=== PATIENT | female | born 1935 | race Caucasian/White ===

== ENCOUNTER 2018-11-09 17:41 | Observation (INO) | payer MEDICARE, SELFPAY ==
[2018-11-09 18:04] VITALS: BMI 24.0
[2018-11-09 18:05] VITALS: BP 115/91; PULSE 56; RESP 20; TEMP 36.8; O2SAT 100
--- NOTE | 2018-11-09 18:25 | PCM.HP.STD ---
Problem List (1) Hypokalemia Status: Acute (2) Mild lactic acidosis Status: Acute (3) Syncope Status: Acute (4) Osteoporosis Status: Chronic (5) Asthma Status: Chronic (6) Hyperlipidemia Status: Chronic (7) Hypertension Status: Chronic (8) GERD (gastroesophageal reflux disease) Status: Chronic History of Present Illness Date of Admission: 11/09/18 Chief Complaint: Syncope. The patient is a 83 year old M with past medical history as mentioned above admitted directly from outside facility for syncope, mild lactic acidosis and hypokalemia. The patient is poor informant and she is forgetful but she was able to provide some information. She states that she woke up here this morning around 3 AM, needed to go to the bathroom, was nauseated and she threw up once, then started to get dizzy and lightheaded and she . Since that time, she could not remember what happened after that. They state that her daughter came in later but she does not know how long after she passed out and her daughter found him on the floor of the bathroom. At this time, she complains only of headache at the back of her head. She mentioned that she ate fish at the restaurant for dinner last night. She is deaf that she was dizzy and lightheaded before she passed out but she denied chest pain, shortness of breath, palpitation. She denied abdominal pain, constipation or diarrhea. She denies urinary symptoms. She mentioned that in the near past, she was seen by a medical technologist prn for chest pain and she was informed that she is fine. She does not remember who was is that medical technologist prn and she does not remember when was that. Her routine blood work at the other facility revealed potassium 3.1, otherwise normal. LFT and lipase were unremarkable. Troponin was 0.01. BNP was 65. Her lactic acid was 2.4. Her EKG revealed normal sinus rhythm, normal VT interval, normal QRS, normal QTC and no evidence of acute ischemic changes or cardiac arrhythmias. She had a CT scan brain at the other facility that revealed no acute infarct or hemorrhage. CT scan cervical spine showed no acute fractures or dislocations. Chest x-ray showed no acute infiltrate or consolidation. Scan abdomen and pelvis that revealed hiatal hernia, diverticulosis and without evidence of acute intra-abdominal pathology. She is being admitted for syncope, probable food poisoning, mild lactic acidosis and hypokalemia. Past Medical History Past Medical History (Chronic Problems): Chronic Problems Osteoporosis (Chronic) Asthma (Chronic) Hyperlipidemia (Chronic) Hypertension (Chronic) GERD (gastroesophageal reflux disease) (Chronic) Home Medications: Ambulatory Orders Medication Instructions Recorded Albuterol Aerosols [Ventolin 2.5 mg INHALATION Q4H PRN PRN 11/09/18 Aerosols] Albuterol Aerosols [Ventolin 2.5 mg INHALATION Q6HWA.RT 11/09/18 Aerosols] Ascorbic Acid [Vitamin C] 500 mg PO DAILY 11/09/18 Baclofen [Lioresal] 10 mg PO BID PRN 11/09/18 Budesonide/Formoterol 160/4.5 2 puff INHALATION BID 11/09/18 [Symbicort 160/4.5 Mcg Inhaler (SP)] Montelukast [Singulair] 10 mg PO QHS 11/09/18 Multivit with Calcium,Iron,Min 1 each PO DAILY 11/09/18 [One Daily Women's] Omeprazole 40 mg PO BID 11/09/18 Potassium Chloride 10 meq PO BID 11/09/18 Simvastatin [Zocor] 20 mg PO QHS 11/09/18 traMADol [Ultram (G)] 50 mg PO Q4H PRN PRN 11/09/18 Surgical History: cholecystectomy, - - Neck surgery. Psychiatric History: No pertinent psych hx Lives: With Family Smoking Status: Never smoker Alcohol: None Drugs: None - *Family History Maternal History Items: No pertinent history Paternal History Items: No pertinent history Review of Systems Constitutional: Denies: Anorexia, Chills, Fever, Weakness Eyes: Denies: Blurred vision, Double vision, Drainage, Redness HEENT: Reports: Head Aches. Denies: Difficulty Hearing, Ear Pain, Eye Pain, Nasal bleeding, Nasal Congestion, Sore Throat Cardiovascular: Reports: Light Headedness, Syncope. Denies: Chest Pain, Chest Pressure, Edema, Heaviness, Palpitations, Paroxysmal Noc. Dyspnea Respiratory: Denies: Cough, Pleuritic Pain, Shortness of Breath, Sputum production, Wheezing Gastrointestinal: Reports: Nausea, Vomiting. Denies: Abdominal Pain, Constipation, Diarrhea Genitourinary: Denies: Dysuria, Frequency, Hematuria Musculoskeletal: Denies: Arm Pain, Back Pain, Foot Pain Skin: Denies: Dryness, Rash Neurological: Reports: Headaches. Denies: Balance problems, Change in Speech, Slurred speech, Confusion, Focal weakness, Incoordination, Numbness Psychiatric: Denies: Anxiety, Depression Endocrine: Denies: Change in Body Habitus, Polydipsia VTE Information - Inpt Only VTE Present on Admission: No VTE Mechan Device Prophylaxis: None VTE Pharm Prophylaxis ordered?: Yes Patient Problems: Active and Suspected Problems Hypokalemia (Acute) Mild lactic acidosis (Acute) Syncope (Acute) - Physical Exam General: Alert, Oriented x3, Cooperative, No apparent distress HEENT: PERRLA, EOMI, Normocephalic Oral: Moist Mucosa, No Gingival or Mucosal Lesions/ Ulcerations Neck: Supple, No JVD, Negative Carotid Bruits, Trachea Midline, Thyroid Normal Size and Texture Lungs: Clear to auscultation, Normal air movement, No rhonchi, No wheeze, No rales Cardiovascular: Regular rate, Regular Rhythm, Normal S1, Normal S2, No murmurs, PMI Normal Abdomen: Bowel Sounds Present, Soft, Non Tender, Non-Distended, No Hepato-splenomegaly Extremities: No clubbing, No cyanosis, No edema Skin: No rashes, No breakdown Lymphatic: No Cervical, Supraclavicular, or Inguinal Adenopathy Neurological: Cranial nerves II-XII grossly intact, Motor Exam 5/5 strength throughout Psych/Mental Status: Normal Affect, Appropriate, Alert and oriented to time, place, person, mood and affect Vital Signs Temp Pulse Resp BP Pulse Ox 98.2 F 56 L 20 H 115/91 H 100 11/09/18 18:05 11/09/18 18:05 11/09/18 18:05 11/09/18 18:05 11/09/18 18:05 Oxygen Delivery Method Room Air Weight: 123 lb Body Mass Index (BMI) 24.0 Laboratory data that was done at the other facility: CBC: WBC 7.1, hemoglobin 12.7, platelet count is 332,000. BMP: BUN 7, creatinine 0.7, sodium 135, potassium 3.1, glucose 150. LFT was normal. Lipase was 6. Lactic acid was 2.4. Troponin is less than 0.01. BNP 65. Urinalysis: Negative for nitrite, trace leukocyte esterase, there was you to 5 to be BCs and 1+ bacteria. ABG: pH of 7., PCO2 20, PO2 65.55 Imaging studies: Reviewed as above. Assessment/Plan All Active Problems Hypokalemia (Acute) Mild lactic acidosis (Acute) Syncope (Acute) This is an 83 years old female patient in outside facility for syncope, nausea and vomiting and she was found to have mild lactic acidosis and hypokalemia and she is being admitted for evaluation and treatment. #1 syncope: Unclear etiology. Patient denies any prodromal symptoms except dizziness and lightheadedness. Could be due to the nausea and vomiting which is presumably due to food poisoning. Her EKG revealed normal sinus rhythm without evidence of acute ischemic change of cardiac arrhythmias. CT scan brain showed no acute findings. Her vital signs are stable. Her routine blood work is medical for mild hypokalemia, otherwise normal. Troponin was negative. Plan: Admit to [facility] floor, cardiac monitoring, serial cardiac enzymes because patient mentioned that she saw a medical technologist prn as outpatient for chest pain and she was informed that she was fine and she does not know when was that, repeat EKG tomorrow morning, IV fluids, orthostatic vitals tomorrow morning, repeat CBC and CMP tomorrow morning, 2D echocardiogram, bilateral carotid Doppler, PT OT evaluation and treatment. I am ordering 2D echocardiogram and carotid Doppler because patient is unreliable. #2 mild lactic acidosis: Without evidence or source of infection. Urine analysis that was done at the outside facility reviewed, no findings consistent with acute cystitis. Chest x-ray shows no acute infiltrate or consolidation. Patient is afebrile, no leukocytosis. This is could be due to the syncopal episode that she had which probably vasovagal. Plan: IV fluids, repeat lactic acid tonight at 8 PM, monitor for clinical signs of infection. #3 probable food poisoning/gastroenteritis: Patient ate fish at a restaurant yesterday, had nausea and vomiting before she passed out. She denied abdominal pain, constipation or diarrhea. She is afebrile. Plan to monitor. #4 hypokalemia: Likely due to nausea and vomiting. Plan for replacing potassium with potassium chloride added to the IV fluids, will check serum magnesium, repeat CMP tomorrow morning. #5 asthma: Clinically stable, pulse ox is normal on room air, continue Symbicort, start albuterol as needed. #6 hypertension: Blood pressure stable, she is not on any antihypertensive medication at this time. #7 hyperlipidemia: Continue statins. #8 GERD: Continue PPI. #9 DVT prophylaxis: Subcu Lovenox. This note was generated with [employer] dictation software. It may contain incorrect words, spelling, and punctuation that were not noted in checking the note before signing. Code Visit Inpatient E&M: 18969 Init Hosp L3
--- NOTE | 2018-11-09 18:30 | HP.PCM_ITS ---
Problem List (1) Hypokalemia Status: Acute (2) Mild lactic acidosis Status: Acute (3) Syncope Status: Acute (4) Osteoporosis Status: Chronic (5) Asthma Status: Chronic (6) Hyperlipidemia Status: Chronic (7) Hypertension Status: Chronic (8) GERD (gastroesophageal reflux disease) Status: Chronic History of Present Illness Date of Admission: 11/09/18 Chief Complaint: Syncope. The patient is a 83 year old M with past medical history as mentioned above admitted directly from outside facility for syncope, mild lactic acidosis and hypokalemia. The patient is poor informant and she is forgetful but she was able to provide some information. She states that she woke up here this morning around 3 AM, needed to go to the bathroom, was nauseated and she threw up once, then started to get dizzy and lightheaded and she . Since that time, she could not remember what happened after that. They state that her daughter came in later but she does not know how long after she passed out and her daughter found him on the floor of the bathroom. At this time, she complains only of headache at the back of her head. She mentioned that she ate fish at the restaurant for dinner last night. She is deaf that she was dizzy and lightheaded before she passed out but she denied chest pain, shortness of breath, palpitation. She denied abdominal pain, constipation or diarrhea. She denies urinary symptoms. She mentioned that in the near past, she was seen by a dye beck reel operator for chest pain and she was informed that she is fine. She does not remember who was is that dye beck reel operator and she does not remember when was that. Her routine blood work at the other facility revealed potassium 3.1, otherwise normal. LFT and lipase were unremarkable. Troponin was 0.01. BNP was 65. Her lactic acid was 2.4. Her EKG revealed normal sinus rhythm, normal [place] interval, normal QRS, normal QTC and no evidence of acute ischemic changes or cardiac arrhythmias. She had a CT scan brain at the other facility that revealed no acute infarct or hemorrhage. CT scan cervical spine showed no acute fractures or dislocations. Chest x-ray showed no acute infiltrate or consolidation. Scan abdomen and pelvis that revealed hiatal hernia, diverticulosis and without evidence of acute intra-abdominal pathology. She is being admitted for syncope, probable food poisoning, mild lactic acidosis and hypokalemia. Past Medical History Past Medical History (Chronic Problems): Chronic Problems Osteoporosis (Chronic) Asthma (Chronic) Hyperlipidemia (Chronic) Hypertension (Chronic) GERD (gastroesophageal reflux disease) (Chronic) Home Medications: Ambulatory Orders Medication Instructions Recorded Albuterol Aerosols [Ventolin 2.5 mg INHALATION Q4H PRN PRN 11/09/18 Aerosols] Albuterol Aerosols [Ventolin 2.5 mg INHALATION Q6HWA.RT 11/09/18 Aerosols] Ascorbic Acid [Vitamin C] 500 mg PO DAILY 11/09/18 Baclofen [Lioresal] 10 mg PO BID PRN 11/09/18 Budesonide/Formoterol 160/4.5 2 puff INHALATION BID 11/09/18 [Symbicort 160/4.5 Mcg Inhaler (SP)] Montelukast [Singulair] 10 mg PO QHS 11/09/18 Multivit with Calcium,Iron,Min 1 each PO DAILY 11/09/18 [One Daily Women's] Omeprazole 40 mg PO BID 11/09/18 Potassium Chloride 10 meq PO BID 11/09/18 Simvastatin [Zocor] 20 mg PO QHS 11/09/18 traMADol [Ultram (G)] 50 mg PO Q4H PRN PRN 11/09/18 Surgical History: cholecystectomy, - - Neck surgery. Psychiatric History: No pertinent psych hx Lives: With Family Smoking Status: Never smoker Alcohol: None Drugs: None - *Family History Maternal History Items: No pertinent history Paternal History Items: No pertinent history Review of Systems Constitutional: Denies: Anorexia, Chills, Fever, Weakness Eyes: Denies: Blurred vision, Double vision, Drainage, Redness HEENT: Reports: Head Aches. Denies: Difficulty Hearing, Ear Pain, Eye Pain, Nasal bleeding, Nasal Congestion, Sore Throat Cardiovascular: Reports: Light Headedness, Syncope. Denies: Chest Pain, Chest Pressure, Edema, Heaviness, Palpitations, Paroxysmal Noc. Dyspnea Respiratory: Denies: Cough, Pleuritic Pain, Shortness of Breath, Sputum production, Wheezing Gastrointestinal: Reports: Nausea, Vomiting. Denies: Abdominal Pain, Constipation, Diarrhea Genitourinary: Denies: Dysuria, Frequency, Hematuria Musculoskeletal: Denies: Arm Pain, Back Pain, Foot Pain Skin: Denies: Dryness, Rash Neurological: Reports: Headaches. Denies: Balance problems, Change in Speech, Slurred speech, Confusion, Focal weakness, Incoordination, Numbness Psychiatric: Denies: Anxiety, Depression Endocrine: Denies: Change in Body Habitus, Polydipsia VTE Information - Inpt Only VTE Present on Admission: No VTE Mechan Device Prophylaxis: None VTE Pharm Prophylaxis ordered?: Yes Patient Problems: Active and Suspected Problems Hypokalemia (Acute) Mild lactic acidosis (Acute) Syncope (Acute) - Physical Exam General: Alert, Oriented x3, Cooperative, No apparent distress HEENT: PERRLA, EOMI, Normocephalic Oral: Moist Mucosa, No Gingival or Mucosal Lesions/ Ulcerations Neck: Supple, No JVD, Negative Carotid Bruits, Trachea Midline, Thyroid Normal Size and Texture Lungs: Clear to auscultation, Normal air movement, No rhonchi, No wheeze, No rales Cardiovascular: Regular rate, Regular Rhythm, Normal S1, Normal S2, No murmurs, PMI Normal Abdomen: Bowel Sounds Present, Soft, Non Tender, Non-Distended, No Hepato- splenomegaly Extremities: No clubbing, No cyanosis, No edema Skin: No rashes, No breakdown Lymphatic: No Cervical, Supraclavicular, or Inguinal Adenopathy Neurological: Cranial nerves II-XII grossly intact, Motor Exam 5/5 strength throughout Psych/Mental Status: Normal Affect, Appropriate, Alert and oriented to time, place, person, mood and affect Vital Signs Temp Pulse Resp BP Pulse Ox 98.2 F 56 L 20 H 115/91 H 100 11/09/18 18:05 11/09/18 18:05 11/09/18 18:05 11/09/18 18:05 11/09/18 18:05 Oxygen Delivery Method Room Air Weight: 123 lb Body Mass Index (BMI) 24.0 Laboratory data that was done at the other facility: CBC: WBC 7.1, hemoglobin 12.7, platelet count is 332,000. BMP: BUN 7, creatinine 0.7, sodium 135, potassium 3.1, glucose 150. LFT was normal. Lipase was 6. Lactic acid was 2.4. Troponin is less than 0.01. BNP 65. Urinalysis: Negative for nitrite, trace leukocyte esterase, there was you to 5 to be BCs and 1+ bacteria. ABG: pH of 7., PCO2 20, PO2 65.55 Imaging studies: Reviewed as above. Assessment/Plan All Active Problems Hypokalemia (Acute) Mild lactic acidosis (Acute) Syncope (Acute) This is an 83 years old female patient in outside facility for syncope, nausea and vomiting and she was found to have mild lactic acidosis and hypokalemia and she is being admitted for evaluation and treatment. #1 syncope: Unclear etiology. Patient denies any prodromal symptoms except diz ziness and lightheadedness. Could be due to the nausea and vomiting which is presumably due to food poisoning. Her EKG revealed normal sinus rhythm without evidence of acute ischemic change of cardiac arrhythmias. CT scan brain showed no acute findings. Her vital signs are stable. Her routine blood work is medical for mild hypokalemia, otherwise normal. Troponin was negative. [facility], cardiac monitoring, serial cardiac enzymes because patient mentioned that she saw a dye beck reel operator as outpatient for chest pain and she was informed that she was fine and she does not know when was that, repeat EKG tomorrow morning, IV fluids, orthostatic vitals tomorrow morning, repeat CBC and CMP tomorrow morning, 2D echocardiogram, bilateral carotid Doppler, PT OT evaluation and treatment. I am ordering 2D echocardiogram and carotid Doppler because patient is unreliable. #2 mild lactic acidosis: Without evidence or source of infection. Urine analysis that was done at the outside facility reviewed, no findings consistent with acute cystitis. Chest x-ray shows no acute infiltrate or consolidation. Patient is afebrile, no leukocytosis. This is could be due to the syncopal episode that she had which probably vasovagal. Plan: IV fluids, repeat lactic acid tonight at 8 PM, monitor for clinical signs of infection. #3 probable food poisoning/gastroenteritis: Patient ate fish at a restaurant yesterday, had nausea and vomiting before she passed out. She denied abdominal pain, constipation or diarrhea. She is afebrile. Plan to monitor. #4 hypokalemia: Likely due to nausea and vomiting. Plan for replacing potassium with potassium chloride added to the IV fluids, will check serum magnesium, repeat CMP tomorrow morning. #5 asthma: Clinically stable, pulse ox is normal on room air, continue Symbicort, start albuterol as needed. #6 hypertension: Blood pressure stable, she is not on any antihypertensive medication at this time. #7 hyperlipidemia: Continue statins. #8 GERD: Continue PPI. #9 DVT prophylaxis: Subcu Lovenox. This note was generated with [employer] dictation software. It may contain incorrect words, spelling, and punctuation that were not noted in checking the note before signing. Code Visit Inpatient E&M: 47458 Init Hosp L3
--- NOTE | 2018-11-09 18:34 | CDU_ITS ---
Reason For Study: SYNCOPE Rt. Velocities/BP Lt. Velocities/BP Prox CCA 174/13 cm/sec. Prox CCA 122/23 cm/sec. Mid CCA 121/23 cm/sec. Mid CCA 118/25 cm/sec. Dist CCA 88/23 cm/sec. Dist CCA 83/21 cm/sec. Prox ICA 109/27 cm/sec. Prox ICA 56/19 cm/sec. Mid ICA 85/21 cm/sec. Mid ICA 81/23 cm/sec. Dist ICA 81/23 cm/sec. Prox ECA 65/14 cm/sec. Rt. ICA/CCA = .6. Lt. Vert. 111/23 cm/sec. Prox ECA 90/21 cm/sec. Rt. Vert. 94/27 cm/sec. Right Extracranial There is intimal thickening but no significant atherosclerotic plaque noted in the right common carotid artery. The tortuous nature of the right common carotid artery may result in flow velocities overestimating the degree of stenosis. There is heterogeneous, irregular atherosclerotic plaque noted in the right internal carotid artery. The right internal carotid artery is very tortuous. There is heterogeneous, smooth atherosclerotic plaque noted in the right external carotid artery. Antegrade flow is noted in the right vertebral artery. Left Extracranial There is intimal thickening but no significant atherosclerotic plaque noted in the left common carotid artery. The left common carotid artery is tortuous. There is heterogeneous, irregular atherosclerotic plaque noted in the left internal carotid artery. The left internal carotid artery is not well visualized. The distal left internal carotid artery is not well visualized. There is heterogeneous, smooth atherosclerotic plaque noted in the left external carotid artery. Antegrade flow is noted in the left vertebral artery. Procedure Carotid Duplex [id number]. The study was technically difficult. The study was technically limited. Exam performed portable in patient room. Technically difficult due to pt back pain - unable to lay on back. Interpretation Summary No hemodynamically significant plague or stenosis bilateral extracranial internal carotids with <50% stenosis. <50% stenosis bilateral external carotids Patent and antegrade vertebrals bilaterally. Very tortuous bilateral common carotids. Diffulty in imaginag particularly left carotid system making the exam technically difficult hampered by patient back pain. Ordering Physician: Danuta Faust Referring Physician: CORI MEDINA Performed By: Ailyn Moya, ARCELIA, RVT
[2018-11-09 18:42] VITALS: BMI 24.0
[2018-11-09 20:00] VITALS: PULSE 69
[2018-11-09] MEDS: Atorvastatin Calcium 10 MG Tablet PO (21:53)
[2018-11-09] MEDS: Montelukast 10 MG Tablet PO (21:53)
[2018-11-09 22:06] VITALS: BP 135/78; PULSE 61; RESP 16; TEMP 36.7; O2SAT 97
[2018-11-09 22:40] LABS: Lactic Acid 1.6 mmol/L (0.4-2.0)
[2018-11-09 22:43] VITALS: PULSE 63
[2018-11-09] MEDS: traMADol 50 MG Tablet PO (22:50)
[2018-11-10] VITALS (12 sets, daily range): BP systolic 127–155; BP diastolic 61–80; PULSE 55–80; RESP 16–20; TEMP 36.4–36.9; O2SAT 94–97
[2018-11-10] MEDS: Ondansetron 4 MG/2 ML Vial IV (04:53)
[2018-11-10] MEDS: Acetaminophen 325 MG Tablet 650 MG PO ×2 (04:53→18:26)
--- NOTE | 2018-11-10 05:55 | EKG12_ITS ---
Test Reason : AM EKG Blood Pressure : / mmHG Vent. Rate : 056 BPM Atrial Rate : 056 BPM P-R Int : 198 ms QRS Dur : 072 ms QT Int : 452 ms P-R-T Axes : 076 -16 009 degrees QTc Int : 436 ms Sinus bradycardia Otherwise normal ECG No previous ECGs available Confirmed by MERCEDES SPEARS, LEDY ([id number]), assistant production editor TAMEKA WEBER ([id number]) on 11/14/2018 2:04:27 PM Referred By: SARA Confirmed By:LEDY LONG MD
[2018-11-10 06:05] LABS: Absolute Lymphocyte Count 1.13 X10^3/ul (0.83-4.51); Absolute Neutrophil Count 2.5 X10^3/uL (2.0-7.7); Basophil# 0.03 X10^3/uL; Basophil% 0.7 % (0-1); Eosinophil# 0.17 X10^3/uL; Eosinophils% 3.9 % (0-5); Hematocrit 31.8 % (40-54); Hemoglobin 10.8 g/dl (13.0-16.5); Lymphocyte # 1.13 X10^3/ul (4.0); Lymphocyte % 25.9 % (19-41); Mean Corpuscular Volume 85.5 fL (80-94); Mean Platelet Vol. 9.6 fl (6.2-12.0); Monocyte% 11.4 % (0-10); Neutrophil # 2.54 X10^3/uL (2.7-7.7); Neutrophil % 58.1 % (47-70); Platelet Count 253 K/mm3 (150-450); RBC Distribution Width CV 13.6 % (11.6-14.6); RBC Distribution Width SD 42.6 fl (35.1-43.9); Red Blood Count 3.72 M/mm3 (4.6-6.2); White Blood Count 4.4 K/mm3 (4.4-11.0)
[2018-11-10 06:12] LABS: POSITIVE COUNT NO; POSITIVE DIFFERENTIAL NO; POSITIVE MORPHOLOGY NO
[2018-11-10] MEDS: proCHLORPERazine 10 MG/2 ML Vial 5 MG IV (06:23)
[2018-11-10 06:31] LABS: ALB/GLOB Ratio 1.1 RATIO (0.9-2.4); AST(SGOT) 18 U/L (15-37); Alanine Aminotransfer ALT/SGPT 12 U/L (16-61); Albumin, Serum 3.1 g/dL (3.2-5.0); Alkaline Phosphatase 79 U/L (45-117); Anion Gap 9 (5-15); BUN 6 mg/dL (7-18); BUN/Creat Ratio 9.7 RATIO (10-20); Calcium,Total 8.2 mg/dL (8.5-10.1); Chloride 107 mmol/L (98-107); Creatinine, Serum 0.62 mg/dL (0.70-1.30); EST Glomerular Filtration Rate 133 mL/min (>60); Est Glom Filt Rate - Afr Amer 161 mL/min (>60); Estimated Creatinine Clearance 40.97 ml/min; Globulin 2.7 g/dL (2.2-4.2); Glucose 108 mg/dL (74-106); Potassium 3.6 mmol/L (3.5-5.1); Protein, Total 5.8 g/dL (6.4-8.2); Sodium Level 135 mmol/L (136-145)
[2018-11-10] MEDS: Albuterol 2.5 MG/3 ML VIAL.NEB. INHALATION ×3 (07:08→19:45)
[2018-11-10] MEDS: Budesonide Respules 0.5 MG/2 ML AMPUL.NEB. INHALATION ×2 (07:09→19:55)
--- NOTE | 2018-11-10 07:36 | PCM.PN.HOSP ---
Patient Problems: Active and Suspected Problems Hypokalemia (Acute) Mild lactic acidosis (Acute) Syncope (Acute) Subjective: Patient was seen and examined. Complains of a headache. Denies any fever or chills. Denied any diarrhea abdominal discomfort. Vitals/I&O's: Vital Signs Temp Pulse Resp BP Pulse Ox 97.5 F L 62 16 155/80 H 97 11/10/18 04:45 11/10/18 07:11 11/10/18 07:11 11/10/18 04:45 11/10/18 07:11 Oxygen Delivery Method Room Air Weight: 55.792 kg Body Mass Index (BMI) 24.0 Intake and Output for Last 24 Hours 11/08/18 11/09/18 11/10/18 23:59 23:59 23:59 Intake Total 1807 / 1807 Output Total 900 / 900 Balance 907 / 907 General: Alert, Oriented x3, Cooperative, No apparent distress HEENT: Atraumatic, PERRLA, EOMI, Normocephalic Oral: Moist Mucosa Neck: Supple Lungs: Clear to auscultation, Normal air movement Cardiovascular: Regular rate, Regular Rhythm, Normal S1, Normal S2, No murmurs Abdomen: Bowel Sounds Present, Soft, Non Tender, Non-Distended, No Hepato-splenomegaly Extremities: No edema Skin: No rashes Musculoskeletal: No Tenderness to Palpation of Joints or Extremities Lymphatic: No Cervical, Supraclavicular, or Inguinal Adenopathy Neurological: Cranial nerves II-XII grossly intact, Neuro grossly intact Psych/Mental Status: Normal Affect, Appropriate Laboratory Results 11/09/18 18:55: Troponin I < 0.015 11/09/18 22:05: Lactic Acid 1.6 11/09/18 22:05: Troponin I < 0.015 11/10/18 00:45: Troponin I 0.017 11/10/18 05:52: WBC 4.4, RBC 3.72 L, Hgb 10.8 L, Hct 31.8 L, MCV 85.5, MCH 29.0, MCHC 34.0, RDW 13.6, RDW Differential 42.6, Plt Count 253, MPV 9.6, Immature Gran % (Auto) 0.000, Neut % (Auto) 58.1, Lymph % (Auto) 25.9, Fergus % (Auto) 11.4 H, Eos % (Auto) 3.9, Baso % (Auto) 0.7, Absolute Neuts (auto) 2.5, Absolute Lymphs (auto) 1.13, Total Counted Not Reportable 11/10/18 05:52: Sodium 135 L, Potassium 3.6, Chloride 107, Carbon Dioxide 19.0 L, Anion Gap 9, BUN 6 L, Creatinine 0.62 L, Estim Creat Clear Calc 40.97, Est GFR (MDRD) Af Amer 161, Est GFR (MDRD) Non-Af 133, BUN/Creatinine Ratio 9.7 L, Glucose 108 H, Calcium 8.2 L, Magnesium 2.0, Total Bilirubin 0.40, AST 18, ALT 12 L, Alkaline Phosphatase 79, Total Protein 5.8 L, Albumin 3.1 L, Globulin 2.7, Albumin/Globulin Ratio 1.1 Current Medications Acetaminophen (Tylenol) 650 mg PO Q6H PRN PRN PRN Reason: Mild Pain (1-3)/Temp > 100.7 F Last Admin: 11/10/18 04:53 Dose: 650 mg Albuterol Sulfate (Ventolin Aerosols) 2.5 mg INHALATION Q4H PRN PRN PRN Reason: Shortness of breath, wheezing Albuterol Sulfate (Ventolin Aerosols) 2.5 mg INHALATION Q6HWA.RT [facility] Last Admin: 11/10/18 07:08 Dose: 2.5 mg Atorvastatin Calcium (Lipitor) 10 mg PO QHS [facility] Last Admin: 11/09/18 21:53 Dose: 10 mg Baclofen (Lioresal) 10 mg PO BID PRN PRN Reason: SPASMS Budesonide (Pulmicort Aerosol) 0.5 mg INHALATION Q12H.RT [facility] Last Admin: 11/10/18 07:09 Dose: 0.5 mg Enoxaparin Sodium (Lovenox) 40 mg SC DAILY@1000 ROE Potassium Chloride/Sodium Chloride () 1,000 mls @ 100 mls/hr IV .Q10H [facility] Stop: 11/10/18 14:33 Last Admin: 11/10/18 05:04 Dose: 100 mls/hr Montelukast Sodium (Singulair) 10 mg PO QHS [facility] Last Admin: 11/09/18 21:53 Dose: 10 mg Ondansetron HCl (Zofran) 4 mg IV Q8H PRN PRN PRN Reason: NAUSEA/VOMITING Last Admin: 11/10/18 04:53 Dose: 4 mg Pantoprazole Sodium (Protonix) 40 mg PO DAILY ROE Sodium Chloride () 5 - 15 ml IV UD PRN PRN Reason: SALINE FLUSH Tramadol HCl (Ultram) 50 mg PO Q4H PRN PRN PRN Reason: PAIN Last Admin: 11/09/18 22:50 Dose: 50 mg Medical Necessity - Tobacco Use Smoking Status: Never smoker Assessment/Plan All Active Problems Hypokalemia (Acute) Mild lactic acidosis (Acute) Syncope (Acute) 83-year-old female with past medical history with hypertension, hyperlipidemia, GERD who was admitted as a transfer from an outside facility with syncope, unclear etiology, likely vasovagal. No acute events overnight. Work-up is essentially been negative. 1. Syncope, unclear etiology, negative orthostatic vitals, unremarkable blood work, carotid ultrasound and 2D echo is pending Telemetry shows normal sinus rhythm with PVCs, will follow-up on therapy recommendations. 2. Lactic acidosis, mild, no signs of sepsis 3. Probable gastroenteritis, resolved 4. Hypokalemia, resolved, repeat BMP in am 5. Hyperlipidemia, on statin 7. GERD, on PPI 8. DVT PPx- Lovenox SC 9. Disposition: Pending PT and OT recommendation Code Visit Inpatient E&M: 01741 Subs Hosp L2
[2018-11-10 08:44] LABS: Bacteria 0 SEEN /hpf (None Seen); Mucous, Urine 0 SEEN /hpf (<or=2+); White Blood Cells 0 SEEN /hpf (0-5)
[2018-11-10 08:51] LABS: Color, Urine Straw (Yellow); Glucose, Dipstick Normal (Normal); Ketone-Dipstick Negative (Negative); Leukocyte Esterase-Dipstick Negative /ul (Negative); Nitrite-Dipstick Negative (Negative); Occult Blood-Urine Negative /ul (Negative); Protein-Dipstick Negative (Negative); Urine Bilirubin Dipstick Negative (Negative); Urine Clarity Clear (Clear); Urine Urobilinogen Normal (Normal)
[2018-11-10 09:21] LABS: Red Blood Cells-Urine 0-5 SEEN /hpf (0-5); Squamous Epithelial Cells - UA 0-5 SEEN /hpf (5-10)
--- NOTE | 2018-11-10 10:10 | CASEMGMT ---
RN PHILIPPE Face to Face with patient for initial transition planning/care coordination assessment. RN CM introduced self and role at [facility]. Patient sitting in chair, alert and oriented. Patient willing to participate in assessment and is able to answer all questions appropriately. Care providers, pharmacy, and demographics verified. Patient wishes to discharge home with possible HHC if needed. Patient states she has no further needs or concerns at this time. CM to follow for discharge planning needs that may arise. PCP: [facility]: [facility]: [facility] Insurance: [facility] PPO Prescription Benefit: yes Living Will/HPOA: Yes, son Gustavo Serrano JR LNOK: son and daughter Living Arrangements: Patient lives with daughter in mobile with ramp to enter the home. Patient states she is independent at home. Transportation: daughter DME/HHC: Patient states she has shower chair, BSC, raised toilet, cane, grab bars, walker, rollator, wc, oxygen 3lpm at night through [employer], cpap, and nebulizer at home. Patient states she has had HHC in the past but does not recall company. CM will follow-up with PCP to inquire previous HHC company. If recommended patient is agreeable to HHC with previous company Disposition Plan: Patient to discharge home with family support and follow-up plans in place. Monitor for need for HHC at discharge. Crystal MORA, RN, CM
[2018-11-10] MEDS: Pantoprazole Sodium 40 MG Tablet PO (11:11)
[2018-11-10] MEDS: Enoxaparin 40 MG/0.4 ML Syringe SC (11:14)
[2018-11-10] MEDS: traMADol 50 MG Tablet PO (15:30)
[2018-11-10] MEDS: Montelukast 10 MG Tablet PO (20:34)
[2018-11-10] MEDS: Atorvastatin Calcium 10 MG Tablet PO (20:34)
[2018-11-10] MEDS: 0.9% NaCl Peripheral Flush Adult/Peds IV (20:34)
[2018-11-11] VITALS (7 sets, daily range): BP systolic 116–135; BP diastolic 53–77; PULSE 60–102; RESP 16–18; TEMP 37–37.1; O2SAT 92–98
[2018-11-11 06:28] LABS: Absolute Lymphocyte Count 1.03 X10^3/ul (0.83-4.51); Absolute Neutrophil Count 2.3 X10^3/uL (2.0-7.7); Basophil# 0.02 X10^3/uL; Basophil% 0.5 % (0-1); Eosinophil# 0.12 X10^3/uL; Eosinophils% 3.2 % (0-5); Hematocrit 32.2 % (37-47); Lymphocyte # 1.03 X10^3/ul (4.0); Lymphocyte % 27.2 % (19-41); Mean Corp Hgb Conc 34.2 g/gl (32-36); Mean Corpuscular Hgb 28.7 pg (27.0-32.0); Mean Corpuscular Volume 84.1 fL (81-99); Mean Platelet Vol. 9.5 fl (6.2-12.0); Monocyte# 0.35 X10^3/uL; Monocyte% 9.2 % (0-10); Neutrophil # 2.27 X10^3/uL (2.7-7.7); Neutrophil % 59.9 % (47-70); Platelet Count 297 K/mm3 (150-450); RBC Distribution Width CV 13.4 % (11.6-14.6); RBC Distribution Width SD 41.1 fl (35.1-43.9); Red Blood Count 3.83 M/mm3 (4.2-5.4); White Blood Count 3.8 K/mm3 (4.4-11.0)
[2018-11-11 06:40] LABS: POSITIVE DIFFERENTIAL NO
[2018-11-11 06:41] LABS: POSITIVE COUNT NO; POSITIVE MORPHOLOGY NO
[2018-11-11 06:41] LABS: Anion Gap 6 (5-15); BUN 4 mg/dL (7-18); BUN/Creat Ratio 6.2 RATIO (10-20); Calcium,Total 8.7 mg/dL (8.5-10.1); Chloride 103 mmol/L (98-107); Creatinine, Serum 0.65 mg/dL (0.55-1.02); EST Glomerular Filtration Rate 93 mL/min (>60); Est Glom Filt Rate - Afr Amer 113 mL/min (>60); Estimated Creatinine Clearance 31.69 ml/min; Glucose 96 mg/dL (74-106); Potassium 3.5 mmol/L (3.5-5.1); Sodium Level 135 mmol/L (136-145)
[2018-11-11] MEDS: Budesonide Respules 0.5 MG/2 ML AMPUL.NEB. INHALATION (07:27)
[2018-11-11] MEDS: Albuterol 2.5 MG/3 ML VIAL.NEB. INHALATION ×2 (07:27→13:19)
[2018-11-11] MEDS: Ondansetron 4 MG/2 ML Vial IV (08:00)
[2018-11-11] MEDS: 0.9% NaCl Peripheral Flush Adult/Peds IV (08:00)
--- NOTE | 2018-11-11 09:28 | RAD_ITS ---
STUDY: X-RAY - ABDOMEN/PELVIS REASON FOR EXAM: Female, 83 years old. Nausea and back pain TECHNIQUE: Supine abdomen COMPARISON: None. FINDINGS: Excluded lung bases. There is a nonspecific, nonobstructive bowel gas pattern. There is no demonstrated free abdominal air. The visualized liver, spleen and kidneys are grossly normal in size and morphology. Normal soft tissue structures. Normal visualized osseous structures. RAD/Abdomen Single View IMPRESSION: Nonobstructive bowel gas pattern. Electronically Signed: Ian Anne MD at 17:50 EDT , Service support ,
--- NOTE | 2018-11-11 09:32 | DCINST_ITS ---
- Discharge Diagnoses Current Active Problems: Current Active and Chronic Problems Hypokalemia (Acute) Mild lactic acidosis (Acute) Syncope (Acute) Osteoporosis (Chronic) Asthma (Chronic) Hyperlipidemia (Chronic) Hypertension (Chronic) GERD (gastroesophageal reflux disease) (Chronic) Reason(s) for Visit for Discharge Instructions: Syncope You will use the following diet at home:: Regular Your food should be the consistency of: Regular Your liquids should be the consistency of: Regular/Thin Discharge Activity: Return to Normal Activity Additional Instructions: Continue to hydrate yourself. Follow-up with your primary care doctor and cardiology within 2 weeks. You should get a repeat blood work with your primary care doctor. Allergies/Adverse Reactions: Allergies amoxicillin Allergy (Verified 11/09/18 18:31) Other hallucinations, light headedness. cat dander Allergy (Verified 11/09/18 18:31) Other Medications to take at Discharge Albuterol Aerosols [Ventolin Aerosols] 2.5 mg INHALATION Q4H PRN PRN 11/09/18 Albuterol Aerosols [Ventolin Aerosols] 2.5 mg INHALATION Q6HWA.RT 11/09/18 Ascorbic Acid [Vitamin C] 500 mg PO DAILY 11/09/18 Baclofen [Lioresal] 10 mg PO BID PRN 11/09/18 Budesonide/Formoterol 160/4.5 [Symbicort 160/4.5 Mcg Inhaler (SP)] 2 puff INHALATION BID 11/09/18 Gabapentin [Neurontin] 300 mg PO QHS 11/09/18 Montelukast [Singulair] 10 mg PO QHS 11/09/18 Multivit with Calcium,Iron,Min [One Daily Women's] 1 each PO DAILY 11/09/18 Omeprazole 40 mg PO DAILY 11/09/18 Potassium Chloride 10 meq PO BID 11/09/18 Simvastatin [Zocor] 20 mg PO QHS 11/09/18 traMADol [Ultram] 50 mg PO Q4H PRN PRN 11/09/18 Primary Care Physician: Nory Albert MD [Primary Care Provider] - Please follow up with your Primary Care Physician in: within 1-2 weeks Test Results: Test results from this visit will be discussed in further detail at your follow- up appointment, if applicable. When: Follow-up with cardiology within 2 weeks Proposed Discharge Date: 11/11/18
--- NOTE | 2018-11-11 09:34 | PCM.DC.SUM ---
Discharge Date and Diagnosis - Problem List Patient Problems: Active and Suspected Problems Hypokalemia (Acute) Mild lactic acidosis (Acute) Syncope (Acute) Date of Admission: 11/09/18 Date of Discharge: 11/11/18 - Primary Discharge Diagnosis Active and Suspected Problems Hypokalemia (Acute) Mild lactic acidosis (Acute), not secondary to sepsis Syncope (Acute) - Secondary Discharge Diagnosis Chronic Problems Osteoporosis (Chronic) Asthma (Chronic) Hyperlipidemia (Chronic) Hypertension (Chronic) GERD (gastroesophageal reflux disease) (Chronic) Hospital Course and Treatment Imaging Results: 11/11/18 09:28 KUB [Abdomen Single View] [RAD] Routine None Operations: None Procedures: None Summary of Care Provided: 83-year-old female with past medical history with hypertension, hyperlipidemia, GERD who was admitted as a transfer from an outside facility with syncope, unclear etiology, likely vasovagal. No acute events overnight. Work-up has essentially been negative. Carotid ultrasound and 2D echo are negative. Telemetry shows normal sinus rhythm with PVCs, will follow-up on therapy recommendations. Her lactic acid was slightly elevated on admission in the outside hospital at 1.6, patient had no signs of sepsis. Her potassium which was reportedly low was normal here and had remained normal on repeat. Discussed with the patient's daughter on phone, patient has been having recurrent syncope, she has had a Holter monitor before with no etiology for the syncope. Advised her to follow-up with the patient's cardiology within 2 weeks. I encouraged patient to continue to hydrate herself. Daughter had questions with regards to patient's memory loss which was suggestive of dementia. Recommended that she follows up with her primary care doctor and possibly a neurology referral. Resources about Alzheimer's disease were given to patient by the geriatric social work professor. Patient Problems: Active and Suspected Problems Hypokalemia (Acute) Mild lactic acidosis (Acute) Syncope (Acute) Subjective: On the discharge, she felt slightly nauseous, she had 2 bowel movements yesterday. Denied any diarrhea. She is been able to have her breakfast with no complains. Objective: Physical exam: General: Alert, Oriented x3, Cooperative, No apparent distress HEENT: Atraumatic, PERRLA, EOMI, Normocephalic Oral: Moist Mucosa Neck: Supple Lungs: Clear to auscultation, Normal air movement Cardiovascular: Regular rate, Regular Rhythm, Normal S1, Normal S2, No murmurs Abdomen: Bowel Sounds Present, Soft, Non Tender, Non-Distended, No Hepato-splenomegaly Extremities: No edema Skin: No rashes Musculoskeletal: No Tenderness to Palpation of Joints or Extremities Lymphatic: No Cervical, Supraclavicular, or Inguinal Adenopathy Neurological: Cranial nerves II-XII grossly intact, Neuro grossly intact Psych/Mental Status: Normal Affect, Appropriate - Physical Exam Vital Signs Temp Pulse Resp BP Pulse Ox 98.6 F 79 16 135/77 H 92 11/11/18 08:04 11/11/18 08:04 11/11/18 08:04 11/11/18 08:04 11/11/18 08:04 Oxygen Delivery Method Room Air Weight: 55.792 kg Body Mass Index (BMI) 24.0 Orthostatic Vital Signs Start: 11/10/18 13:11 Freq: q24h Status: Active Protocol: Activity Type Activity Date Activity User E-Sign Co-Sign Detail Recorded Client Recorded Date Recorded By Document 11/10/18 15:15 MAB [id number] 11/10/18 15:24 MAB 11/10/18 15:15 Orthostatic Vitals Standing -Blood Pressure (90/60-120/80) 127/80 H -Extremity Use Right Arm -Pulse Rate (60-100) 80 Sitting -Blood Pressure (90/60-120/80) 132/68 H -Extremity Use Right Arm -Pulse Rate (60-100) 66 Lying -Blood Pressure (90/60-120/80) 133/74 H -Extremity Use Right Arm -Pulse Rate (60-100) 65 Intake and Output for Last 24 Hours 11/09/18 11/10/18 11/11/18 23:59 23:59 23:59 Intake Total 3563 / 3563 250 / 250 Output Total 900 / 900 Balance 2663 / 2663 250 / 250 Microbiology Past 72 Hours 11/10/18 08:10 Urine Culture - Preliminary Urine, Clean Catch Mixed Gram Positive Organisms Laboratory Tests Past 24 Hrs 11/11/18 11/11/18 06:05 06:15 WBC 3.8 L RBC 3.83 L Hgb 11.0 L Hct 32.2 L MCV 84.1 MCH 28.7 MCHC 34.2 RDW 13.4 RDW Differential 41.1 Plt Count 297 MPV 9.5 Immature Gran % (Auto) 0.000 Neut % (Auto) 59.9 Lymph % (Auto) 27.2 Clarke % (Auto) 9.2 Eos % (Auto) 3.2 Baso % (Auto) 0.5 Absolute Neuts (auto) 2.3 Absolute Lymphs (auto) 1.03 Total Counted Not Reportable Sodium 135 L Potassium 3.5 Chloride 103 Carbon Dioxide 26.0 Anion Gap 6 BUN 4 L Creatinine 0.65 Estim Creat Clear Calc 31.69 Est GFR (MDRD) Af Amer 113 Est GFR (MDRD) Non-Af 93 BUN/Creatinine Ratio 6.2 L Glucose 96 Calcium 8.7 Discharge Diet: Low fat/ Low Cholesterol, 2000 mg Sodium Diet Discharge Activity: Return to Normal Activity Home Medications: Medications to take at Discharge Albuterol Aerosols [Ventolin Aerosols] 2.5 mg INHALATION Q4H PRN PRN 11/09/18 Albuterol Aerosols [Ventolin Aerosols] 2.5 mg INHALATION Q6HWA.RT 11/09/18 Ascorbic Acid [Vitamin C] 500 mg PO DAILY 11/09/18 Baclofen [Lioresal] 10 mg PO BID PRN 11/09/18 Budesonide/Formoterol 160/4.5 [Symbicort 160/4.5 Mcg Inhaler (SP)] 2 puff INHALATION BID 11/09/18 Gabapentin [Neurontin] 300 mg PO QHS 11/09/18 Montelukast [Singulair] 10 mg PO QHS 11/09/18 Multivit with Calcium,Iron,Min [One Daily Women's] 1 each PO DAILY 11/09/18 Omeprazole 40 mg PO DAILY 11/09/18 Potassium Chloride 10 meq PO BID 11/09/18 Simvastatin [Zocor] 20 mg PO QHS 11/09/18 traMADol [Ultram] 50 mg PO Q4H PRN PRN 11/09/18 Primary Care Physician: Nory Albert MD [Primary Care Provider] - Please follow up with your Primary Care Physician in: within 1-2 weeks Please Follow Up With: Briseida June PA When: Follow-up with cardiology within 2 weeks Disposition: Home with Home Health Minutes spent on discharge:: 40 Patient Condition:: Stable Medical Necessity - Tobacco Use Smoking Status: Never smoker Tobacco Use: Non-smoker Meaningful Use Info Meaningful Use Diagnoses (Choose all that apply): None applicable Code Visit OBSV E&M: 41731 Observation care discharge
[2018-11-11] MEDS: Pantoprazole Sodium 40 MG Tablet PO (10:31)
[2018-11-11] MEDS: Enoxaparin 40 MG/0.4 ML Syringe SC (10:31)
--- NOTE | 2018-11-11 13:08 | CASEMGMT ---
Social Work Note Physician updated this worker that pt's daughter would like Alzheimer's/dementia resources. SW attempted to see pt. Pt currently off floor for x-ray. SW left resources for pt's daughters including Alzheimer's Association and Alzheimer's support group information in pt's room. Crystal Wood SODA ROOM OPERATOR, COMMUNICATIONS TOWER CLIMBER
[2018-11-11] MEDS: traMADol 50 MG Tablet PO (13:43)
== END 2018-11-11 14:25 | disposition home or self-care (01) ==
PROVIDERS: Admitting Provider Hospitalist; Family Provider Family Medicine; PCP Family Medicine; Visit Provider Internal Medicine
DX: E87.6 Hypokalemia (principal); R55 Syncope and collapse; E78.5 Hyperlipidemia, unspecified; J45.909 Unspecified asthma, uncomplicated; K21.9 Gastro-esophageal reflux disease without esophagitis; I10 Essential (primary) hypertension; E87.2 Acidosis; Z79.899 Other long term (current) drug therapy
CPT/HCPCS: 36415; 74018; 80048; 80053; 81001; 83605; 83735; 84484; 85025; 87086; 87088; 93005; 93306; 93880; 94640; 96361; 96372; 96374; 96375; 96376; 97116; 97161; 97165; 99218; A4216; G0378; J2405

== ENCOUNTER 2021-03-30 15:25 | Emergency (ER) | payer MEDICARE, SELFPAY ==
[2021-03-30 15:25] VITALS: BP 141/85; PULSE 62; RESP 20; TEMP 36.3; O2SAT 98; BMI 28.7
== END 2021-03-30 16:44 | disposition left against medical advice (07) ==
LOC: ED 16:43
PROVIDERS: PCP Family Medicine
DX: R69 Illness, unspecified (principal); Z53.21 Procedure and treatment not carried out due to patient leaving prior to being seen by health care provider

== ENCOUNTER 2022-01-10 20:20 | Observation (INO) | payer MEDICARE, SELFPAY ==
--- NOTE | 2022-01-10 19:13 | EKG12_ITS ---
Test Reason : AM EKG Blood Pressure : / mmHG Vent. Rate : 052 BPM Atrial Rate : 052 BPM P-R Int : 206 ms QRS Dur : 080 ms QT Int : 492 ms P-R-T Axes : 061 -16 -16 degrees QTc Int : 457 ms Sinus bradycardia Otherwise normal ECG Confirmed by ALVINO SPEARS, MARIANNE ([id number]), offline editor TAMEKA WEBER ([id number]) on 01/13/2022 8:26:34 AM Referred By: Confirmed By:MARIANNE DE OLIVEIRA MD
[2022-01-10 20:30] VITALS: BP 143/81; PULSE 61; RESP 24; TEMP 36.6; O2SAT 95
[2022-01-10 20:31] VITALS: BMI 28.0
[2022-01-10 20:35] VITALS: PULSE 59
--- NOTE | 2022-01-10 21:15 | HP.PCM.HOS_ITS ---
HPI - General General Date of Admission: 01/10/22 Date of Service: 01/10/22 Chief Complaint: Chest pain HPI Narrative The patient is an 86 y/o F w/ PMHx: Hx DVT, ZOILA, COPD w/ Chronic Hypoxic Respiratory Failure/Intermittent mild Asthma with allergic rhinitis, Anxiety and Depression, GERD w/ Hiatal hernia, Alzheimer's disease with mild cognitive impairment/dementia without behavioral disturbance history, Chronic back pain, Pulmonary HTN, HLD who presents to the [facility] as direct admission from OSH ED on 01/10/22 with onset of ~ 1 month of chest pain, intermittent, not associated with increased activity noted to be L sided, sharp in nature, rated 10/10 at its worst, reporting at least 15 minute episode of day of current presentation prompting evaluation at OSH ED. She currently remains chest pain free upon H transition and notes mild headache onset since NG paste application. Work-up included at OSH ED high-sensitivity troponin initial 8 with repeat delta also 8, chest x-ray with no acute cardiopulmonary findings SARS COVID PCR negative, CMP with sodium 132, chloride 96, BUN/creatinine 8/0.90, glucose 129 otherwise unremarkable with unremarkable hepatic profile, magnesium 2.3, EKG with sinus rhythm with no acute evidence of ischemia, patient ministered Nitropaste 1 inch, aspirin 325 mg x 1 with resolution of chest pain at that time. Patient per report had a stress test over 10 years prior which is unremarkable at that time. [facility] Medical History (Updated 01/10/22 @ 21:[address] Deborah Persaud MD) Alzheimer's dementia without behavioral disturbance Anxiety and depression Asthma Chronic back pain COPD (chronic obstructive pulmonary disease) Hiatal hernia with GERD History of DVT (deep vein thrombosis) Hyperlipidemia Hypertension ZOILA (obstructive sleep apnea) Home Medications albuterol sulfate 1 inhalation Q4H PRN PRN Wheezing 11/09/18 [History Last Taken Unknown] budesonide-formoterol HFA 160 mcg-4.5 mcg/actuation aerosol inhaler (Symbicort) 2 puff inhalation BID 11/09/18 [History Last Taken Unknown] gabapentin 300 mg capsule (Neurontin) 300 mg PO QHS pain 11/09/18 [History Last Taken Unknown] montelukast 10 mg tablet 10 mg PO QHS allergies 11/09/18 [History Last Taken Unknown] potassium chloride 10 mEq capsule,extended release 10 meq PO DAILY supplement 11/09/18 [History Last Taken Unknown] lisinopril 30 mg tablet 30 mg PO DAILY 01/10/22 [History Last Taken Unknown] omeprazole 40 mg capsule,delayed release 40 mg PO DAILY 01/10/22 [History Last Taken Unknown] Allergy/AdvReac Type Severity Reaction Status Date / Time amoxicillin Allergy Other Verified 11/15/18 12:54 cat dander Allergy Other Verified 11/15/18 12:54 Family History (Updated 01/10/22 @ 19:[address] Deborah Persaud MD) Mother CVA (cerebral vascular accident) Hypertension Heart disease Myocardial infarction Alzheimer disease GERD (gastroesophageal reflux disease) Multiple sclerosis Surgical History (Updated 01/10/22 @ 19:[address] Deborah Persaud MD) H/O neck surgery History of bilateral carpal tunnel release History of total right knee replacement S/P cholecystectomy S/P hysterectomy S/P right rotator cuff repair S/P wrist surgery Status post repair of paraesophageal diaphragmatic hernia Social History (Updated 01/10/22 @ 19:[address] Deborah Persaud MD) household members: other details: Lives with her daughter. 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 ROS ROS Narrative Admission Review of Systems: CONSTITUTIONAL: No weight loss, fever, chills, + weakness or fatigue. HEENT: Eyes: No visual loss, blurred vision, double vision or yellow sclerae. Ears, Nose, Throat: No hearing loss, sneezing, congestion, runny nose or sore throat. SKIN: No rash or itching, lesions, wounds. CARDIOVASCULAR: + chest pain, chest pressure or chest discomfort, No palpitations, edema, orthopnea, syncopal events. RESPIRATORY: No shortness of breath, cough or sputum, wheezing, hemoptysis. GASTROINTESTINAL: No anorexia, nausea, vomiting or diarrhea, abdominal pain, melena, BRBPR. GENITOURINARY: No dysuria, frequency, urgency or retention. NEUROLOGICAL: No headache, dizziness, syncope, paralysis, ataxia, numbness or tingling in the extremities, focal weakness, change in bowel or bladder control, seizure. MUSCULOSKELETAL: + muscle, back pain, joint pain or stiffness. HEMATOLOGIC: No anemia, bleeding or bruising. LYMPHATICS: No enlarged nodes. No history of splenectomy. PSYCHIATRIC: + history of depression or anxiety. ENDOCRINOLOGIC: No reports of sweating, cold or heat intolerance. No polyuria or polydipsia. ALLERGIES: + history of asthma, hives, eczema or rhinitis. Vital Signs Vital Signs Vital Signs: 01/10/22 20:28 01/10/22 20:35 01/10/22 20:30 Temperature 97.8 F Temperature Source Oral Pulse Rate 59 L 61 Pulse Strength Weak (1+) Respiratory Rate 24 H Respiratory Effort Respiratory Depth Respiratory Pattern Blood Pressure 143/81 H Blood Pressure Mean 101 Blood Pressure Source Monitor Blood Pressure Position Semi-Fowlers Blood Pressure Location Right Arm Pulse Ox 95 Oxygen Delivery Method Room Air 01/10/22 20:50 Temperature Temperature Source Pulse Rate Pulse Strength Respiratory Rate Respiratory Effort Short of Breath Respiratory Depth Normal Respiratory Pattern Normal Blood Pressure Blood Pressure Mean Blood Pressure Source Blood Pressure Position Blood Pressure Location Pulse Ox Oxygen Delivery Method Room Air Weight Weight: 143 lb 11.862 oz Body Mass Index (BMI) 28.0 Physical Exam Narrative Physical Examination: General: Awake, alert, oriented x 3 and cooperative, seated upright in PCU bed in no apparent distress, chest pain remains resolved. Skin: Normal color, normal turgor, no icterus, no cyanosis. HEENT: AT/NC, EOMI, PERRLA, MMM, no carotid bruits or JVD noted. Lungs: Diminished, greater bases, poor effort, no rales, ronchi or wheezing. Heart: Currently regular rate and rhythm; no gallop, rub audible. Abdomen: Soft, NTTP, ND, normal BS, no HSM. Extremities: No cyanosis, clubbing, or edema. Neurological: Patient awake, alert, oriented as noted cognitive function intact; pupils equally reactive to light and accommodation, cranial nerves II-XII grossly normal, moving all 4 extremities, no focal deficits, strength mildly to moderately global decreased Psychiatric: Affect appears mildly fatigued otherwise normal, no acute evidence of depressive or anxiety feelings. Assessment & Plan Assessment/Plan (1) Chest pain: PLAN: Plan The patient is an 86 y/o F w/ PMHx: Hx DVT, ZOILA, COPD w/ Chronic Hypoxic Respiratory Failure/Intermittent mild Asthma with allergic rhinitis, Anxiety and Depression, GERD w/ Hiatal hernia, Alzheimer's disease with mild cognitive impairment/dementia without behavioral disturbance history, Chronic back pain, Pulmonary HTN, HLD who presents to the [facility] as direct admission from OSH ED on 01/10/22 with onset of ~ 1 month of chest pain, intermittent, not associated with increased activity noted to be L sided, sharp in nature. #1. Chest Pain, lower suspicion for cardiac etiology: EKG in ED at outside facility with sinus rhythm and no acute evidence of ischemia, CXR w/ no acute cardiopulmonary finding, initial trop 8 with repeat delta 8. Will admit to PCU to be cautious given underlying history, place on a monitored bed to assure no acute myocardial infarction with serial cardiac enzymes and EKGs. If repeat serial enzymes and EKGs remain unremarkable will pursue a.m. cardiac stress testing on Tuesday. Magnesium level at outside facility normal. FLP in AM. ASA, NG, morphine. #2. Chronic COPD/Asthma with reported per outside records chronic hypoxic respiratory failure with allergic rhinitis: Will maintain on home oxygen supplementation, will hold patient home inhalers and transition in the interim to ATC duonebs, PRN albuterol, HOB, IS parameters, continue home montelukast regimen. #3. Hypertension: Continue home regimen including lisinopril with hold parameters as needed, PRN hydralazine. #4. Hyperlipidemia: Not on regimen, defer to outpatient. #5. Chronic back pain: Continue patient home gabapentin regimen. #6. Anxiety and depression: Not on any regimen, was noted to have been on prior, likely off secondary to age, defer to outpatient. #7. GERD with history hiatal hernia: Continue home omeprazole regimen. #8. Alzheimer's disease with mild cognitive impairment/dementia without be havioral disturbance history: Noted and records reviewed on [facility], maintain on fall precautions. #9. History DVT: Noted remote history of DVT, not anticoagulated. #10. ZOILA: CPAP nightly if amenable. #11. DVT prophylaxis: SCDs, Lovenox. #12. CODE status: HCPOA and living will are not in place. Discussed CODE status at length including difference between FULL code, DNR-CCA and DNR-CC status. Following discussions about the differences in these status, requested continued medical treatment but no aggressive measures, DNR-CCA, no intubation status. Advanced Care Planning Face to Face Time: 16 minutes. Charges/Coding Visit Charges OBSV E&M: 35814 Initial observation care L3 Procedures Hospitalists Procedures: 48296 Advncd Care Plan 30 Min
[2022-01-10] MEDS: 0.9% Normal Saline 1,000 ML 100 ML IV (21:39)
[2022-01-10 22:04] LABS: Troponin-I HS 9 pg/mL (3.0-54.0)
[2022-01-11] VITALS (7 sets, daily range): BP systolic 96–158; BP diastolic 65–77; PULSE 53–70; RESP 14–18; TEMP 36.6–36.9; O2SAT 96–99
[2022-01-11 00:27] LABS: Troponin-I HS 7 pg/mL (3.0-54.0)
[2022-01-11 03:53] LABS: Absolute Lymphocyte Count 1.56 X10^3/uL (0.83-4.51); Absolute Neutrophil Count 2.3 X10^3/uL (2.0-7.7); Basophil# 0.05 X10^3/uL; Basophil% 1.1 % (0-1); Eosinophil# 0.18 X10^3/uL; Eosinophils% 3.9 % (0-5); Hematocrit 36.3 % (37-47); Hemoglobin 12.1 g/dL (12.0-15.0); Lymphocyte # 1.56 X10^3/ul (0.83-4.51); Lymphocyte % 34.1 % (19-41); Mean Corp Hgb Conc 33.3 g/dL (32-36); Mean Corpuscular Hgb 27.8 pg (27.0-32.0); Mean Corpuscular Volume 83.4 fL (81-99); Mean Platelet Vol. 10.3 fl (6.2-12.0); Monocyte# 0.52 X10^3/uL; Monocyte% 11.4 % (0-10); NRBC Flagged by Analyzer 0 % (0-5); Neutrophil # 2.26 X10^3/uL (2.7-7.7); Neutrophil % 49.5 % (47-70); Platelet Count 282 K/mm3 (150-450); RBC Distribution Width CV 14.6 % (11.6-14.6); RBC Distribution Width SD 44.7 fl (35.1-43.9); Red Blood Count 4.35 M/mm3 (4.2-5.4); White Blood Count 4.6 K/mm3 (4.4-11.0)
[2022-01-11 04:08] LABS: Troponin-I HS 9 pg/mL (3.0-54.0)
[2022-01-11 04:40] LABS: ALB/GLOB Ratio 1.2 RATIO (0.9-2.4); AST(SGOT) 11 U/L (15-37); Alanine Aminotransfer ALT/SGPT 13 U/L (13-56); Albumin, Serum 3.2 g/dL (3.2-5.0); Alkaline Phosphatase 99 U/L (45-117); Anion Gap 7 (5-15); BUN 7 mg/dL (7-18); BUN/Creat Ratio 9.8 RATIO (10-20); Calcium,Total 8.6 mg/dL (8.5-10.1); Chloride 105 mmol/L (98-107); Cholesterol 174 mg/dL (200); Creatinine, Serum 0.72 mg/dL (0.55-1.02); EST Glomerular Filtration Rate 83 mL/min (>60); Est Glom Filt Rate - Afr Amer 100 mL/min (>60); Estimated Creatinine Clearance 30.08 ml/min; Globulin 2.7 g/dL (2.2-4.2); Glucose 110 mg/dL (74-106); High Density Lipoprotein 79 mg/dL; Potassium 4.2 mmol/L (3.5-5.1); Protein, Total 5.9 g/dL (6.4-8.2); Sodium Level 136 mmol/L (136-145); Triglycerides 64 mg/dL; Very Low Density Lipoprotein 13 mg/dL (5-40)
--- NOTE | 2022-01-11 05:00 | EKG12_ITS ---
Test Reason : CP ADMIT Blood Pressure : / mmHG Vent. Rate : 059 BPM Atrial Rate : 059 BPM P-R Int : 208 ms QRS Dur : 078 ms QT Int : 444 ms P-R-T Axes : 069 -19 -08 degrees QTc Int : 439 ms Sinus bradycardia Otherwise normal ECG Confirmed by ALVINO SPEARS, MARIANNE ([id number]), commissioning editor TAMEKA WEBER ([id number]) on 01/13/2022 8:27:44 AM Referred By: Confirmed By:MARIANNE DE OLIVEIRA MD
[2022-01-11] MEDS: Ipratropium/Albuterol Sulfate 3 ML AMPUL.NEB INHALATION ×2 (07:17→13:47)
--- NOTE | 2022-01-11 10:53 | STRESSREP ---
Stress Test Report Date: 01-11-2022 Procedure: Pharmacologic stress nuclear imaging study Indications: Chest pain; COPD; GERD; Alzheimer's disease Consent: Per the patient Procedure: The patient underwent pharmacologic (Regadenoson 0.4mg ) evaluation with a peak heart rate of 93 beats per minute (68%predicted maximal heart rate) and a peak blood pressure of 128/82 mmHg. The baseline ECG demonstrated normal sinus rhythm; nonspecific T wave abnormality. The peak pharmacologic ECG demonstrated no obvious ECG changes. There were no cardiac dysrhythmias pretest, during pharmacologic infusion, or recovery. There was no complaint of chest discomfort during pharmacologic infusion or recovery. The examination was discontinued secondary to completion of protocol. Impression: 1. Pharmacologic (Regadenoson) evaluation 2. Peak pharmacologic ECG with no obvious ECG changes. 3. There were no cardiac dysrhythmias pretest, during pharmacologic infusion, or recovery. 4. Nuclear images pending Myocardial perfusion imaging study: Technique: The patient was injected with 10.3 millicuries of technetium 99m Cardiolite and subsequently rest SPECT Cardiolite nuclear imaging was obtained in the horizontal long, vertical long, and short axis views. The patient underwent pharmacologic (Regadenoson) evaluation with a peak heart rate of 93 beats per minute (68% percent predicted maximal heart rate) and a peak blood pressure of 128/88 mmHg. The patient was injected with 35.8 millicuries of technetium 99m Cardiolite and subsequently stress SPECT Cardiolite nuclear imaging was obtained in the horizontal long, vertical long, and short axis views. A gated Cardiolite study at peak stress was obtained. Interpretation: Rest and stress SPECT Cardiolite nuclear imaging status post realignment, normalization, and attenuation correction demonstrate the appearance of body motion during image acquisition and otherwise the appearance of relative uniform tracer uptake and myocardial perfusion appearing within normal limits. There is end systolic thickening and brightening. The gated Cardiolite study demonstrates myocardial thickening and inward wall motion. The reported LVEF is 75%. Impression: 1. Relative uniform tracer uptake and myocardial perfusion appearing within normal limits. 2. The gated Cardiolite study reports an LVEF of 75%. This note was generated with [employer] software. It may contain incorrect words, spelling, and punctuation that were not noted in checking the note before signing.
--- NOTE | 2022-01-11 11:19 | DCINST_ITS ---
Discharge Instructions Diet Discharge Diet: No restrictions Activity Discharge Activity: Return to Normal Activity Follow Up Care Test Results: Test results from this visit will be discussed in further detail at your follow- up appointment, if applicable. Discharge Plan Admission Admit Date/Time: 01/10/22 20:20 Primary Reason for Your Visit: Acute Chest pain Attending Provider: Janny Mejia Primary Care Provider: Nory Albert Consulting Providers: Deborah Persaud Instructions Additional Instructions / Restrictions: Your stress test was negative which means it was unlikely that her chest pain was secondary to your heart You had reproducible plan on pressing your anterior chest wall. You can take an ibuprofen or Tylenol as needed for pain. Follow-up with your primary care doctor within 1 week of discharge. Discharge Orders/Prescriptions Prescriptions: Continued albuterol sulfate 2.5 MG/3 ML solution for nebulization 1 inhalation Q4H PRN PRN (Reason: Wheezing) potassium chloride 10 MEQ capsule, extended release 10 meq PO DAILY montelukast 10 MG tablet 10 mg PO QHS budesonide-formoterol [Symbicort] 1 INHALER inhaler 2 puff inhalation BID gabapentin [Neurontin] 300 MG capsule 300 mg PO QHS omeprazole 40 mg capsule,delayed release(DR/EC) 40 mg PO DAILY lisinopril 30 mg tablet 30 mg PO DAILY Referrals / Follow Up: Nory Albert MD [Primary Care Provider] - In 1 Week Disposition Disposition (needs filled in before D/C Order can be placed): Home, Self Care
[2022-01-11] MEDS: Aspirin E.C. 81 MG Tablet PO (12:11)
[2022-01-11] MEDS: Enoxaparin 40 MG/0.4 ML Syringe SC (12:11)
[2022-01-11] MEDS: Acetaminophen 325 MG Tablet 650 MG PO (12:47)
--- NOTE | 2022-01-11 12:55 | DS.PCM_ITS ---
Providers Date of Admission: 01/10/22 Date of Discharge: 01/11/22 Primary Care Physician: Dr. Nory Albert MD Reason For Visit: CHEST PAIN Diagnosis Discharge Diagnosis (1) Chest pain: Status: Acute Code(s): R07.9 - Chest pain, unspecified Medications at Discharge Home Medications albuterol sulfate 1 inhalation Q4H PRN PRN Wheezing 11/09/18 budesonide-formoterol HFA 160 mcg-4.5 mcg/actuation aerosol inhaler (Symbicort) 2 puff inhalation BID breathing 11/09/18 gabapentin 300 mg capsule (Neurontin) 300 mg PO QHS pain 11/09/18 montelukast 10 mg tablet 10 mg PO QHS allergies 11/09/18 potassium chloride 10 mEq capsule,extended release 10 meq PO DAILY supplement 11/09/18 lisinopril 30 mg tablet 30 mg PO DAILY blood pressure 01/10/22 omeprazole 40 mg capsule,delayed release 40 mg PO DAILY reflux 01/10/22 Hospital Course Operations None Procedures Nuclear stress test Summary of Care Provided Minutes Spent on Discharge: 40 Hospital Course: 86y/o female with PMHx of DVT, ZOILA, Anxiety/depression comes in with 1 month history of chest pain, intermittent, left sided. Admitting vitals are unremarkable. EKG with no acute ST-T changes. troponins were negative. Patient received Nitropaste for chest pain. Patient was admitted and monitored on telemetry. No acute events. She underwent nuclear stress test that was unremarkable. Lipid profile was unremarkable. On the day of discharge, patient was seen and examined. She complains of mild chest pain, left sided that was reproducible on palpating the precordium and left sternal border. She was recommended to take NSAIDS/Tylenol. She will follow-up with her primary care doctor within 1 to 2 weeks. Physical Exam Narrative Physical exam: General: Alert, Oriented x3, Cooperative, No apparent distress HEENT: Atraumatic Oral: Moist Mucosa Neck: Supple Lungs: Clear to auscultation, left sternal border and precordial area reproducible chest pain Cardiovascular: HS I+II, regular, no murmurs Abdomen: Bowel Sounds Present, Soft, Non Tender Extremities: No edema Skin: No rashes, No breakdown Neurological: Grossly intact Psych/Mental Status: Appropriate Weight / BMI Weight Weight: 65.2 kg Body Mass Index (BMI) 28.0 ABG / Lab / Microbiology Data Result Diagrams: 01/11/22 03:40 01/11/22 03:40 Laboratory: Laboratory Results - last 24 hr 01/10/22 21:30: Troponin I High Sens 9 01/10/22 23:28: Troponin I High Sens 7 01/11/22 03:40: WBC 4.6, RBC 4.35, Hgb 12.1, Hct 36.3 L, MCV 83.4, MCH 27.8, MCHC 33.3, RDW Std Deviation 44.7 H, RDW Coeff of Reji 14.6, Plt Count 282, MPV 10.3, Immature Gran % (Auto) 0.000, Neut % (Auto) 49.5, Lymph % (Auto) 34.1, [place] % (Auto) 11.4 H, Eos % (Auto) 3.9, Baso % (Auto) 1.1 H, Absolute Neuts (auto) 2.3, Absolute Lymphs (auto) 1.56, Nucleated RBC % 0 01/11/22 03:40: Sodium 136, Potassium 4.2, Chloride 105, Carbon Dioxide 24.0, Anion Gap 7, BUN 7, Creatinine 0.72, Estim Creat Clear Calc 30.08, Est GFR (MDRD) Af Amer 100, Est GFR (MDRD) Non-Af 83, BUN/Creatinine Ratio 9.8 L, Glucose 110 H, Calcium 8.6, Total Bilirubin 0.40, AST 11 L, ALT 13, Alkaline Phosphatase 99, Total Protein 5.9 L, Albumin 3.2, Globulin 2.7, Albumin/Globulin Ratio 1.2, Triglycerides 64, Cholesterol 174, LDL Cholesterol 82, VLDL Cholesterol 13, HDL Cholesterol 79 01/11/22 03:40: Troponin I High Sens 9 D/C Instructions Discharge Diet: No restrictions Meaningful Use Info Meaningful Use Diagnoses (Choose all that apply): None applicable Discharge Plan Admission Admit Date/Time: 01/10/22 20:20 Primary Reason for Your Visit: Acute Chest pain Attending Provider: Janny Mejia Primary Care Provider: Nory Albert Consulting Providers: Deborah Persaud Instructions Additional Instructions / Restrictions: Your stress test was negative which means it was unlikely that your chest pain was secondary to your heart You had reproducible painn on pressing your anterior chest wall. You can take an ibuprofen or Tylenol as needed for pain. Follow-up with your primary care doctor within 1 week of discharge. Discharge Orders/Prescriptions Prescriptions: Continued albuterol sulfate 2.5 MG/3 ML solution for nebulization 1 inhalation Q4H PRN PRN (Reason: Wheezing) potassium chloride 10 MEQ capsule, extended release 10 meq PO DAILY montelukast 10 MG tablet 10 mg PO QHS budesonide-formoterol [Symbicort] 1 INHALER inhaler 2 puff inhalation BID gabapentin [Neurontin] 300 MG capsule 300 mg PO QHS omeprazole 40 mg capsule,delayed release(DR/EC) 40 mg PO DAILY lisinopril 30 mg tablet 30 mg PO DAILY Referrals / Follow Up: Nory Albert MD [Primary Care Provider] - In 1 Week Disposition Disposition (needs filled in before D/C Order can be placed): Home, Self Care Charges/Coding Visit Charges OBSV E&M: 14704 Observation care discharge
== END 2022-01-11 11:17 | disposition home or self-care (01) ==
PROVIDERS: Admitting Provider Family Medicine; PCP Family Medicine; Visit Provider Internal Medicine
DX: R07.89 Other chest pain (principal); F02.80 Dementia in other diseases classified elsewhere, unspecified severity, without behavioral disturbance, psychotic disturbance, mood disturbance, and anxiety; G30.9 Alzheimer's disease, unspecified; J44.9 Chronic obstructive pulmonary disease, unspecified; I27.20 Pulmonary hypertension, unspecified; E78.5 Hyperlipidemia, unspecified; F41.9 Anxiety disorder, unspecified; F32.A Depression, unspecified; K21.9 Gastro-esophageal reflux disease without esophagitis; I10 Essential (primary) hypertension; G89.29 Other chronic pain; K44.9 Diaphragmatic hernia without obstruction or gangrene; G47.33 Obstructive sleep apnea (adult) (pediatric); Z86.718 Personal history of other venous thrombosis and embolism; R00.1 Bradycardia, unspecified; Z79.899 Other long term (current) drug therapy
CPT/HCPCS: 36415; 78452; 80053; 80061; 84484; 85025; 93005; 93017; 94640; 96360; 96361; 96372; 99218; A9500; J7030; A4216; G0378; G0379; J2785

== ENCOUNTER 2022-11-04 18:38 | Emergency (ER) | payer MEDICARE, SELFPAY ==
[2022-11-04 18:40] VITALS: BP 154/119; PULSE 78; RESP 22; TEMP 36.6; O2SAT 98; BMI 27.2
--- NOTE | 2022-11-04 19:21 | EKG12_ITS ---
Test Reason : DYSRHYTHMIA Blood Pressure : / mmHG Vent. Rate : 073 BPM Atrial Rate : 072 BPM P-R Int : 000 ms QRS Dur : 068 ms QT Int : 390 ms P-R-T Axes : 000 -22 -28 degrees QTc Int : 429 ms Atrial fibrillation Nonspecific ST and T wave abnormality Abnormal ECG Confirmed by KINA SPEARS, CELY ([id number]), editor & co founder TAMEKA WEBER ([id number]) on 11/08/2022 11:48:36 AM Referred By: TARAS Confirmed By:JOSHUA CASTANON MD
[2022-11-04 19:41] VITALS: O2SAT 99
[2022-11-04 19:45] LABS: Absolute Lymphocyte Count 1.29 X10^3/uL (0.83-4.51); Absolute Neutrophil Count 6.9 X10^3/uL (2.0-7.7); Basophil# 0.05 X10^3/uL; Basophil% 0.5 % (0-1); Eosinophil# 0.12 X10^3/uL; Eosinophils% 1.3 % (0-5); Hematocrit 45.7 % (37-47); Lymphocyte # 1.29 X10^3/ul (0.83-4.51); Mean Corp Hgb Conc 32.8 g/dL (32-36); Mean Corpuscular Hgb 27.1 pg (27.0-32.0); Mean Corpuscular Volume 82.6 fL (81-99); Mean Platelet Vol. 9.2 fl (6.2-12.0); Monocyte# 0.75 X10^3/uL; Monocyte% 8.2 % (0-10); NRBC Flagged by Analyzer 0 % (0-5); Neutrophil # 6.94 X10^3/uL (2.7-7.7); Neutrophil % 75.5 % (47-70); Platelet Count 468 K/mm3 (150-450); RBC Distribution Width CV 14.5 % (11.6-14.6); RBC Distribution Width SD 43.2 fl (35.1-43.9); Red Blood Count 5.53 M/mm3 (4.2-5.4); White Blood Count 9.2 K/mm3 (4.4-11.0)
--- NOTE | 2022-11-04 19:45 | RAD_ITS ---
INDICATION: chest pain EXAMINATION/TECHNIQUE: X-RAY - XR Chest 1 View COMPARISON: None. FINDINGS: LINES/DEVICES: None. LUNGS: No consolidation, edema or effusion. No pneumothorax. MEDIASTINUM AND CARDIOVASCULAR STRUCTURES: Cardiac silhouette not enlarged. Central airways and mediastinal contour are unremarkable. BONES AND SOFT TISSUES: Degenerative vertebral changes and slight scoliosis. RAD/Chest 1 View (Portable) IMPRESSION: No radiographic evidence of acute cardiopulmonary disease. Electronically Signed: Donnell Tenorio DO at 20:55 EDT ,
[2022-11-04 20:09] VITALS: BP 144/85; BP 157/108; BP 178/159
[2022-11-04 20:16] LABS: Anion Gap 8 (5-15); BUN 18 mg/dL (7-18); BUN/Creat Ratio 20.1 RATIO (10-20); Chloride 95 mmol/L (98-107); EST Glomerular Filtration Rate 64 mL/min (>60); Est Glom Filt Rate - Afr Amer 77 mL/min (>60); Estimated Creatinine Clearance 32.83 ml/min; Glucose 116 mg/dL (74-106); Sodium Level 128 mmol/L (136-145); Troponin-I HS 6 pg/mL (3.0-54.0)
--- NOTE | 2022-11-04 20:32 | EX.ED.DYSGE1 ---
HPI History of Present Illness Chief Complaint: Dizziness Narrative Narrative: 87-year-old female presenting with feeling dizzy and nauseous. She states that recently she was treated for COPD exacerbation and she is currently on doxycycline and prednisone for her cough. She states she was actually recovering over the last 3 days and feeling improved. She has not done much activity. She accompanied her daughter to the emergency room today because she was having allergic reaction and states that she became very nervous and had 1 episode of vomiting. Currently she states she feels better. She does not have a cough or shortness of breath. She has not had a fever recently. No nausea or vomiting since that episode. Patient states he has been eating and drinking well and making normal urine and stool. Denies chest pain. [facility] Medical History Alzheimer's dementia without behavioral disturbance Anxiety and depression Asthma Chronic back pain COPD (chronic obstructive pulmonary disease) Hiatal hernia with GERD History of DVT (deep vein thrombosis) Hyperlipidemia Hypertension Mild lactic acidosis ZOILA (obstructive sleep apnea) Home Medications albuterol sulfate 2.5 mg/3 mL (0.083 %) solution for nebulization 1 inhalation Q4H PRN PRN Wheezing 11/09/18 [History Last Taken Unknown] budesonide-formoterol HFA 160 mcg-4.5 mcg/actuation aerosol inhaler (Symbicort) 2 puff inhalation BID breathing 11/09/18 [History Last Taken Unknown] gabapentin 300 mg capsule (Neurontin) 300 mg PO QHS pain 11/09/18 [History Last Taken Unknown] montelukast 10 mg tablet 10 mg PO QHS allergies 11/09/18 [History Last Taken Unknown] potassium chloride 10 mEq capsule,extended release 10 meq PO DAILY supplement 11/09/18 [History Last Taken Unknown] lisinopril 30 mg tablet 30 mg PO DAILY blood pressure 01/10/22 [History Last Taken Unknown] omeprazole 40 mg capsule,delayed release 40 mg PO DAILY reflux 01/10/22 [History Last Taken Unknown] apixaban 5 mg (74 tabs) tablets in a dose pack (Eliquis DVT-PE Treat 30D Start) 5 mg PO BID #74 tabs 11/05/22 [Rx Last Taken Unknown] Allergy/AdvReac Type Severity Reaction Status Date / Time amoxicillin Allergy Other Verified 11/04/22 18:40 cat dander Allergy Other Verified 11/04/22 18:40 Family History Mother CVA (cerebral vascular accident) Hypertension Heart disease Myocardial infarction Alzheimer disease GERD (gastroesophageal reflux disease) Multiple sclerosis Surgical History H/O neck surgery History of bilateral carpal tunnel release History of total right knee replacement S/P cholecystectomy S/P hysterectomy S/P right rotator cuff repair S/P wrist surgery Status post repair of paraesophageal diaphragmatic hernia Social History household members: other details: Lives with her daughter. 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 ROS ROS ED Constitutional Constitutional ED: Denies chills or fever(s) Eyes Eyes: Denies change in vision or diplopia ENT ENT ED: Denies rhinorrhea or sore throat Cardiovascular Cardiovascular: Denies chest pain or palpitations Respiratory/Chest Respiratory/Chest: Denies cough Gastrointestinal Gastrointestinal: Reports nausea and vomiting; Denies abdominal pain or constipation Genitourinary Genitourinary ED: Denies dysuria Musculoskeletal Musculoskeletal: Denies arthralgias or back pain Integumentary Denies abscess Neurologic Neurologic: Denies headache(s) Psychiatric Psychiatric: Reports anxiety; Denies depression, suicidal ideation or suicidal thoughts Endocrine Endocrinology: Denies cold intolerance or heat intolerance EXAM Physical Exam Const Vital Signs: 11/04/22 18:40 11/04/22 18:42 11/04/22 19:41 Temperature 97.8 F Temperature Source Oral Pulse Rate 78 Respiratory Rate 22 H Respiratory Pattern Tachypnea Blood Pressure 154/119 H Blood Pressure [Lying] Blood Pressure [Sitting (for 1 minute prior to obtaining)] Blood Pressure [Standing (for 1 minute prior to obtaining)] Blood Pressure Mean 130 Blood Pressure Mean [Lying] Blood Pressure Mean [Sitting (for 1 minute prior to obtaining)] Blood Pressure Mean [Standing (for 1 minute prior to obtaining)] Pulse Ox 98 99 Oxygen Delivery Method Room Air Room Air 11/04/22 20:09 11/04/22 20:41 11/04/22 22:02 Temperature Temperature Source Pulse Rate 76 77 Respiratory Rate 19 H 16 Respiratory Pattern Blood Pressure 126/88 H 161/106 H Blood Pressure [Lying] 144/85 H Blood Pressure [Sitting (for 1 minute prior to obtaining)] 157/108 H Blood Pressure [Standing (for 1 minute prior to obtaining)] 178/159 H Blood Pressure Mean 100 124 Blood Pressure Mean [Lying] 104 Blood Pressure Mean [Sitting (for 1 minute prior to obtaining)] 124 Blood Pressure Mean [Standing (for 1 minute prior to obtaining)] 165 Pulse Ox 95 100 Oxygen Delivery Method Room Air Room Air 11/05/22 00:22 Temperature Temperature Source Pulse Rate 92 Respiratory Rate 25 H Respiratory Pattern Blood Pressure 142/97 H Blood Pressure [Lying] Blood Pressure [Sitting (for 1 minute prior to obtaining)] Blood Pressure [Standing (for 1 minute prior to obtaining)] Blood Pressure Mean 112 Blood Pressure Mean [Lying] Blood Pressure Mean [Sitting (for 1 minute prior to obtaining)] Blood Pressure Mean [Standing (for 1 minute prior to obtaining)] Pulse Ox 97 Oxygen Delivery Method Room Air MDM MDM MDM Narrative Medical decision making narrative: 87-year-old female who is currently being treated for COPD exacerbation on doxycycline and prednisone presenting today with lightheadedness, nausea/vomiting which occurred after she saw her daughter being treated by EMS. This is now improved. She denies any chest pain or shortness of breath. Differential includes pneumonia, COPD, dehydration, electrolyte abnormalities, ACS. EKG was obtained to assess for arrhythmia or ischemia on my interpretation this is atrial fibrillation with controlled ventricular response at 72 bpm. CBC shows white blood cell count of 9.2, hemoglobin 15.0, hematocrit 45.7, platelets 468. Creatinine is normal. Sodium slightly low at 128 potassium normal 4.0. Patient given a liter normal saline. High-sensitivity troponin 6. Review of the medical record shows that she had a normal stress test just last year in January. She had a normal EF at point. I do not see any history of this A-fib. I repeated the EKG and it looks similar. Again no history of A-fib. Discussed the case with Dr. Armijo who felt the patient was stable for discharge home and follow-up with cardiology. We will start her on Eliquis today. First dose given in the ER. Risk benefits were discussed with the patient and her daughter. Patient daughter takes Eliquis and she knows very well with the risk factors are. Patient discharged in stable condition. Impression: 1. Lightheadedness 2. Nausea/vomiting 3. A-fib 4. Hypertension Lab Data Labs: Laboratory Results - last 24 hr 11/04/22 11/04/22 19:38 19:38 WBC 9.2 RBC 5.53 H Hgb 15.0 Hct 45.7 MCV 82.6 MCH 27.1 MCHC 32.8 RDW Std Deviation 43.2 RDW Coeff of Reji 14.5 Plt Count 468 H MPV 9.2 Immature Gran % (Auto) 0.500 Neut % (Auto) 75.5 H Lymph % (Auto) 14.0 L [place] % (Auto) 8.2 Eos % (Auto) 1.3 Baso % (Auto) 0.5 Absolute Neuts (auto) 6.9 Absolute Lymphs (auto) 1.29 Nucleated RBC % 0 Sodium 128 L Potassium 4.0 Chloride 95 L Carbon Dioxide 25.0 Anion Gap 8 BUN 18 Creatinine 0.90 Estim Creat Clear Calc 32.83 Est GFR (MDRD) Af Amer 77 Est GFR (MDRD) Non-Af 64 BUN/Creatinine Ratio 20.1 H Glucose 116 H Calcium 9.0 Troponin I High Sens 6 Radiography Diagnostic Testing: Clinical Impression(s) from Imaging Studies Chest X-Ray 11/04/22 19:45 IMPRESSION: No radiographic evidence of acute cardiopulmonary disease. Electronically Signed: Donnell Tenorio DO at 20:55 EDT Reading Location ID and State: [facility] / [place] Tel [phone], Service support , Discharge Plan Triage Chief Complaint: Dizziness Other Complaint: Nausea/Vomiting ED Provider: Gustavo Lehman Dx/Rx/DC Orders Instructions: ED AFIB, ED Dizziness, Uncertain Cause, ED Vomiting (Adult) Prescriptions: New Eliquis DVT-PE Treat 30D Start 5 mg (74 tabs) tablets,dose pack 5 mg PO BID Qty: 74 0RF No Action albuterol sulfate 2.5 MG/3 ML solution for nebulization 1 inhalation Q4H PRN PRN (Reason: Wheezing) potassium chloride 10 MEQ capsule, extended release 10 meq PO DAILY montelukast 10 MG tablet 10 mg PO QHS budesonide-formoterol [Symbicort] 1 INHALER inhaler 2 puff inhalation BID gabapentin [Neurontin] 300 MG capsule 300 mg PO QHS omeprazole 40 mg capsule,delayed release(DR/EC) 40 mg PO DAILY lisinopril 30 mg tablet 30 mg PO DAILY Primary Care Provider: Care Physician,No Primary Referrals: Edmar Armijo MD [Med Staff - Active Staff] - As soon as possible Care Physician,No Primary [Primary Care Provider] - Disposition Disposition: Home, Self Care
[2022-11-04 20:41] VITALS: BP 126/88; PULSE 76; RESP 19; O2SAT 95
[2022-11-04] MEDS: 0.9% Normal Saline 1,000 ML 999 ML IV (20:45)
[2022-11-04 22:02] VITALS: BP 161/106; PULSE 77; RESP 16; O2SAT 100
--- NOTE | 2022-11-04 22:54 | EKG12_ITS ---
Test Reason : DYSRHYTHMIA Blood Pressure : / mmHG Vent. Rate : 072 BPM Atrial Rate : 394 BPM P-R Int : 000 ms QRS Dur : 076 ms QT Int : 396 ms P-R-T Axes : 000 -25 -20 degrees QTc Int : 433 ms Atrial fibrillation Nonspecific T wave abnormality Abnormal ECG Confirmed by KINA SPEARS, CELY ([id number]), graphics editor TAMEKA WEBER ([id number]) on 11/08/2022 11:48:59 AM Referred By: BABAK Confirmed By:JOSHUA CASTANON MD
[2022-11-05 00:22] VITALS: BP 142/97; PULSE 92; RESP 25; O2SAT 97
[2022-11-05] MEDS: APIXABAN 5 MG TABLET 10 MG PO (01:35)
[2022-11-05 01:37] VITALS: BP 127/83; PULSE 104; RESP 15; O2SAT 96
== END 2022-11-05 01:52 | disposition home or self-care (01) ==
PROVIDERS: Emergency Provider Student in an Organized Health Care Education/Training Program; Visit Provider Student in an Organized Health Care Education/Training Program
DX: R42 Dizziness and giddiness (principal); I48.91 Unspecified atrial fibrillation; R11.2 Nausea with vomiting, unspecified; E78.5 Hyperlipidemia, unspecified; I10 Essential (primary) hypertension; G47.33 Obstructive sleep apnea (adult) (pediatric); Z86.718 Personal history of other venous thrombosis and embolism
CPT/HCPCS: 71045; 80048; 84484; 85025; 93005; 96360; 96361; 99285; J7030; A4216